=== PATIENT | male | born 1950 | race African-American/Black ===

== ENCOUNTER 2016-05-03 07:11 | Outpatient (CLI) | payer MEDICARE ==
[2016-05-03 08:28] LABS: ALT (SGPT) 23 U/L (0-55); AST (SGOT) 15 U/L (5-34); Albumin 4.1 g/dL (3.4-4.8); Alkaline Phosphatase 128 U/L (40-150); Anion Gap 20 mmol/L (10-20); BUN (Urea Nitrogen) 12 mg/dL (8.4-25.7); Bilirubin, Total 0.7 mg/dL (0.2-1.2); Calc. Creatinine Clearance 0 mL/min (70-130); Calcium 9.4 mg/dL (7.8-10.44); Carbon Dioxide 20 mmol/L (23-31); Cardiac Risk 4.7 (Less than 4.5); Chloride 98 mmol/L (98-107); Cholesterol 238 mg/dL (< 200 Desired); Estimated GFR-MDRD 75; Globulin 2.7 g/dL (2.4-3.5); Glucose 407 mg/dL (80-115); HDL Cholesterol 51 mg/dL (>60 Neg Risk); Hemoglobin A1c 15.2 % (4.0-6.0); LDL Cholesterol, Calculated 144 mg/dL; Potassium 4.3 mmol/L (3.5-5.1); Protein, Total 6.8 g/dL (5.8-8.1); Sodium 134 mmol/L (136-145); Triglycerides 215 mg/dL (Less than 150)
[2016-05-03 08:50] LABS: #Basophils 0.2 thou/uL (0.0-0.2); #Eosinphils 0.1 thou/uL (0.0-0.7); #Lymphocytes 3.7 thou/uL (1.20-3.40); #Monocytes 0.6 thou/uL (0.11-0.59); #Neutrophils 3.3 thou/uL (1.40-6.50); %Basophils 2.2 % (0.0-1.0); %Eosinophils 1.6 % (0.0-10.0); %Lymphocytes 47.1 % (21.0-51.0); %Neutrophils 42.1 % (42.0-75.0); Hemoglobin 13.5 g/dL (14.0-18.0); Mean Corpuscular HGB CONC 33.2 g/dL (32.0-36.0); Mean Corpuscular Hemoglobin 27.4 pg (27.0-31.0); Mean Corpuscular Volume 82.6 fl (80.0-94.0); Mean Platelet Volume 8.7 fL (7.4-10.4); Platelet Count 219 thou/uL (130-400); RBC Distribution Width 13.4 % (11.5-14.5); Red Blood Cell (RBC) Count 4.92 mill/uL (4.70-6.10); White Blood Cell (WBC) Count 7.8 thou/uL (4.8-10.8)
[2016-05-03 17:35] LABS: Microalbumin Urine 11.6 mg/dL (0.5-50.0)
[2016-05-03 18:00] LABS: Creatinine, Urine 68.85 mg/dL (63-166); Microalbumin/Creat Ratio 168.5 mg/g (Less than 30)
== END 2016-05-03 07:12 ==
LOC: MADLABBHPM 07:11
PROVIDERS: ATTEND Family Medicine
DX: E78.5 Hyperlipidemia, unspecified (principal); G89.21 Chronic pain due to trauma; E11.40 Type 2 diabetes mellitus with diabetic neuropathy, unspecified; I10 Essential (primary) hypertension
CPT/HCPCS: 36415; 80053; 80061; 82043; 83036; 84443; 85025

== ENCOUNTER 2016-08-07 08:54 | Outpatient (CLI) | payer MEDICARE ==
[2016-08-07 09:41] LABS: Hemoglobin A1c 12.7 % (4.0-6.0)
[2016-08-07 10:09] LABS: Cardiac Risk 3.1 (Less than 4.5)
== END 2016-08-07 08:55 | disposition home or self-care (01) ==
LOC: MADLABBHPM 08:54
PROVIDERS: ATTEND Family Medicine
DX: E78.5 Hyperlipidemia, unspecified (principal); E11.40 Type 2 diabetes mellitus with diabetic neuropathy, unspecified
CPT/HCPCS: 36415; 80061; 83036

== ENCOUNTER 2016-09-13 08:41 | Outpatient (CLI) | payer MEDICARE ==
[2016-09-13 09:30] LABS: #Basophils 0.2 thou/uL (0.0-0.2); #Eosinphils 0.1 thou/uL (0.0-0.7); #Lymphocytes 2.8 thou/uL (1.20-3.40); #Monocytes 0.6 thou/uL (0.11-0.59); #Neutrophils 4.9 thou/uL (1.40-6.50); %Basophils 2.1 % (0.0-1.0); %Eosinophils 0.8 % (0.0-10.0); %Lymphocytes 32.5 % (21.0-51.0); %Neutrophils 57.7 % (42.0-75.0); Mean Corpuscular HGB CONC 32.7 g/dL (32.0-36.0); Mean Corpuscular Hemoglobin 27.5 pg (27.0-31.0); Mean Corpuscular Volume 84.4 fl (80.0-94.0); Mean Platelet Volume 8.6 fL (7.4-10.4); Platelet Count 226 thou/uL (130-400); RBC Distribution Width 14.1 % (11.5-14.5); Red Blood Cell (RBC) Count 4.71 mill/uL (4.70-6.10); White Blood Cell (WBC) Count 8.5 thou/uL (4.8-10.8)
[2016-09-13 09:36] LABS: Hemoglobin A1c 10.7 % (4.0-6.0)
[2016-09-13 09:55] LABS: ALT (SGPT) 27 U/L (8-55); AST (SGOT) 19 U/L (5-34); Albumin 4.2 g/dL (3.4-4.8); Alkaline Phosphatase 111 U/L (40-150); Anion Gap 17 mmol/L (10-20); BUN (Urea Nitrogen) 14 mg/dL (8.4-25.7); Bilirubin, Direct 0.2 mg/dL (0.1-0.3); Bilirubin, Total 0.5 mg/dL (0.2-1.2); Calc. Creatinine Clearance 0 mL/min (70-130); Calcium 9.5 mg/dL (7.8-10.44); Carbon Dioxide 23 mmol/L (23-31); Chloride 105 mmol/L (98-107); Estimated GFR-MDRD Greater than 90; Glucose 100 mg/dL (80-115); Potassium 4.2 mmol/L (3.5-5.1); Protein, Total 7.3 g/dL (5.8-8.1); Sodium 141 mmol/L (136-145)
[2016-09-13 12:09] LABS: Bilirubin Negative (Negative); Blood, Urine Negative (Negative); Clarity Clear (Clear); Glucose, Urine (Dipstick) 250 mg/dL (Negative); Leukocyte Negative (Negative); Nitrite Negative (Negative); Protein, Urine (Dipstick) 100 mg/dL (Neg-Trace); RBC/HPF None Seen HPF (0-3); Specific Gravity, Urine 1.025 (1.005-1.030); Squamous Epithelial 0-3 HPF (0-3); Urobilinogen 0.2 mg/dL (0.2-1.0); WBC/HPF 0-3 HPF (0-3)
[2016-09-13 12:10] LABS: Bacteria/HPF None Seen HPF (None Seen)
== END 2016-09-13 08:42 | disposition home or self-care (01) ==
LOC: MADLAB 08:41
PROVIDERS: ATTEND Urology
DX: C61 Malignant neoplasm of prostate (principal); N28.9 Disorder of kidney and ureter, unspecified; R35.1 Nocturia; E11.9 Type 2 diabetes mellitus without complications
CPT/HCPCS: 36415; 80048; 80076; 81001; 83036; 84153; 85025; 87086

== ENCOUNTER 2016-12-09 11:08 | Outpatient (CLI) | payer MEDICARE ==
[2016-12-09 12:24] LABS: Hemoglobin A1c 9.8 % (4.0-6.0)
[2016-12-09 12:26] LABS: ALT (SGPT) 26 U/L (8-55); AST (SGOT) 17 U/L (5-34); Albumin 4.3 g/dL (3.4-4.8); Alkaline Phosphatase 105 U/L (40-150); Anion Gap 17 mmol/L (10-20); BUN (Urea Nitrogen) 12 mg/dL (8.4-25.7); Bilirubin, Total 0.7 mg/dL (0.2-1.2); Calc. Creatinine Clearance 0 mL/min (70-130); Calcium 9.4 mg/dL (7.8-10.44); Carbon Dioxide 23 mmol/L (23-31); Cardiac Risk 3.6 (Less than 4.5); Chloride 103 mmol/L (98-107); Cholesterol 190 mg/dl (< 200 Desired); Estimated GFR-MDRD 87; Globulin 3.1 g/dL (2.4-3.5); Glucose 324 mg/dL (80-115); HDL Cholesterol 53 mg/dL (>60 Neg Risk); LDL Cholesterol, Calculated 116 mg/dL; Potassium 4.6 mmol/L (3.5-5.1); Protein, Total 7.4 g/dL (5.8-8.1); Sodium 138 mmol/L (136-145); Triglycerides 106 mg/dL (Less than 150)
[2016-12-09 12:27] LABS: #Basophils 0.2 thou/uL (0.0-0.2); #Eosinphils 0.1 thou/uL (0.0-0.7); #Lymphocytes 2.9 thou/uL (1.20-3.40); #Monocytes 0.5 thou/uL (0.11-0.59); #Neutrophils 5.5 thou/uL (1.40-6.50); %Basophils 2.2 % (0.0-1.0); %Eosinophils 1.1 % (0.0-10.0); %Lymphocytes 31.3 % (21.0-51.0); %Monocytes 5.9 % (0.0-10.0); %Neutrophils 59.5 % (42.0-75.0); Hemoglobin 13.4 g/dL (14.0-18.0); Mean Corpuscular HGB CONC 32.3 g/dL (32.0-36.0); Mean Corpuscular Hemoglobin 26.9 pg (27.0-31.0); Mean Corpuscular Volume 83.3 fl (80.0-94.0); Mean Platelet Volume 8.6 fL (7.4-10.4); Platelet Count 222 thou/uL (130-400); RBC Distribution Width 13.8 % (11.5-14.5); Red Blood Cell (RBC) Count 4.96 mill/uL (4.70-6.10); White Blood Cell (WBC) Count 9.2 thou/uL (4.8-10.8)
[2016-12-09 19:47] LABS: Syphilis Antibody Index 7.35 S/CO (<1.00 Non-Reactive)
[2016-12-09 19:54] LABS: HBCM Index 0.11 S/CO (0-0.79); HBSAg Index 0.28 S/CO (0-0.99); HIV (1/2) Antibody/Antigen Non-Reactive (NonReactive); HIV 1/2 INDEX 0.19 S/CO (<1.00); Hep A IgM AB Non-Reactive (NonReactive); Hep A IgM S/CO 0.19 S/CO (0-0.79); Hep B Surf Ag Non-Reactive S/CO (NonReactive); Hep C IgG Ab Non-Reactive (NonReactive); Hep C Index 0.07 S/CO (0-0.79); Hepatitis B Core IGM Abs Non-Reactive (NonReactive)
[2016-12-09 20:54] LABS: Syphilis Antibody INDETERMINATE (NonReactive)
[2016-12-10 20:38] LABS: Chlamydia by PCR Not Detected (NotDetected); GC by PCR Not Detected (NotDetected)
[2016-12-12 23:10] LABS: HSV-1 IgG Type Specific <0.91 index (0.00-0.90); HSV-2 IgG Type Specific Less than 0.91 index (0.00-0.90)
== END 2016-12-09 11:09 | disposition home or self-care (01) ==
LOC: MADLABBHPM 11:08
PROVIDERS: ATTEND Family Medicine
DX: Z20.2 Contact with and (suspected) exposure to infections with a predominantly sexual mode of transmission (principal); E11.40 Type 2 diabetes mellitus with diabetic neuropathy, unspecified; R25.1 Tremor, unspecified
CPT/HCPCS: 36415; 80053; 80061; 80074; 83036; 85025; 86593; 86694; 86695; 86696; 86780; 87389; 87491; 87591

== ENCOUNTER 2017-01-17 17:55 | Emergency (ER) | payer MEDICARE, OTHER ==
[2017-01-17] MEDS ORDERED: Insulin Regular 300 UNITS/3 ML VIAL ONE (18:30)
[2017-01-17 18:54] LABS: #Basophils 0.1 thou/uL (0.0-0.2); #Eosinphils 0.1 thou/uL (0.0-0.7); #Lymphocytes 3.1 thou/uL (1.20-3.40); #Monocytes 0.7 thou/uL (0.11-0.59); #Neutrophils 4.3 thou/uL (1.40-6.50); %Basophils 1.2 % (0.0-1.0); %Eosinophils 0.9 % (0.0-10.0); %Monocytes 8.2 % (0.0-10.0); %Neutrophils 51.8 % (42.0-75.0); Hemoglobin 11.9 g/dL (14.0-18.0); Mean Corpuscular HGB CONC 33.7 g/dL (32.0-36.0); Mean Platelet Volume 7.2 fL (7.4-10.4); Platelet Count 214 thou/uL (130-400); RBC Distribution Width 13.7 % (11.5-14.5); Red Blood Cell (RBC) Count 4.25 mill/uL (4.70-6.10); White Blood Cell (WBC) Count 8.2 thou/uL (4.8-10.8)
[2017-01-17] MEDS ORDERED: traMADol HCl 50 MG TAB ONE (19:11)
[2017-01-17] MEDS ORDERED: Ketorolac Tromethamine 30 MG/ML VIAL ONE (19:11)
[2017-01-17 19:12] LABS: ALT (SGPT) 16 U/L (8-55); AST (SGOT) 9 U/L (5-34); Albumin 4.1 g/dL (3.4-4.8); Alkaline Phosphatase 96 U/L (40-150); Anion Gap 19 mmol/L (10-20); BUN (Urea Nitrogen) 18 mg/dL (8.4-25.7); Bilirubin, Total 0.6 mg/dL (0.2-1.2); Calc. Creatinine Clearance 0 mL/min (70-130); Calcium 9.4 mg/dL (7.8-10.44); Carbon Dioxide 19 mmol/L (23-31); Chloride 103 mmol/L (98-107); Estimated GFR-MDRD 57; Globulin 2.6 g/dL (2.4-3.5); Glucose 391 mg/dL (80-115); Potassium 4.9 mmol/L (3.5-5.1); Protein, Total 6.7 g/dL (5.8-8.1); Sodium 136 mmol/L (136-145)
[2017-01-17 19:14] LABS: CKMB 3.5 ng/mL (0-6.6); Troponin I 0.011 ng/mL (< 0.028)
[2017-01-17 19:22] LABS: Bilirubin Negative (Negative); Blood, Urine Negative (Negative); Clarity Clear (Clear); Glucose, Urine (Dipstick) >=1000 mg/dL (Negative); Leukocyte Negative (Negative); Nitrite Negative (Negative); Protein, Urine (Dipstick) 30 mg/dL (Neg-Trace); Urobilinogen 0.2 mg/dL (0.2-1.0)
[2017-01-17 19:24] LABS: Bacteria/HPF Rare-Few HPF (None Seen); RBC/HPF 0-3 HPF (0-3); Squamous Epithelial 0-3 HPF (0-3); WBC/HPF None Seen HPF (0-3)
== END 2017-01-17 19:52 | disposition home or self-care (01) ==
LOC: MADERS 17:55
DX: E11.65 Type 2 diabetes mellitus with hyperglycemia (principal); M54.5 Low back pain; G89.29 Other chronic pain; E78.5 Hyperlipidemia, unspecified; I10 Essential (primary) hypertension; Z79.899 Other long term (current) drug therapy; Z79.4 Long term (current) use of insulin
CPT/HCPCS: 36416; 80053; 81003; 81015; 82553; 84484; 85025; 93005; 96372; 36415-59; J1815; J1885

== ENCOUNTER 2017-05-10 04:59 | Emergency (ER) | payer MEDICARE, OTHER ==
[2017-05-10] MEDS ORDERED: HYDROcodone/Acetaminophen 10/325 mg Tablet ONE (05:32)
[2017-05-10] MEDS ORDERED: Naproxen 500 MG TAB ONE (05:33)
[2017-05-10] MEDS ORDERED: MORPHINE 10 MG/ML SYRINGE ONE (07:04)
[2017-05-10] MEDS ORDERED: Ondansetron HCl/PF 4 MG/2 ML Vial ONE ×2 (07:04→07:11)
[2017-05-10] MEDS ORDERED: Ondansetron ODT 4 MG TAB ONE (07:13)
--- NOTE | 2017-05-10 08:52 | RAD ---
LEFT KNEE 4 VIEWS: Date: 05/10/17 HISTORY: Fall, left knee pain. FINDINGS/IMPRESSION: No acute fracture or dislocation is identified. POS: CICI
--- NOTE | 2017-05-10 08:53 | RAD ---
RIGHT KNEE 4 VIEWS: Date: 05/10/17 HISTORY: Fall, right knee pain. FINDINGS/IMPRESSION: No fracture or dislocation is identified. POS: CICI
--- NOTE | 2017-05-10 08:56 | RAD ---
LEFT ANKLE 3 VIEWS: Date: 05/10/17 HISTORY: Fall, left ankle pain. FINDINGS/IMPRESSION: There is a mildly displaced oblique fracture involving the distal fibula. No significant disruption o f the ankle mortise is seen. Soft tissue swelling is present. POS: CICI
== END 2017-05-10 08:30 | disposition home or self-care (01) ==
LOC: MADERS 04:59
DX: S82.832A Other fracture of upper and lower end of left fibula, initial encounter for closed fracture (principal); E11.9 Type 2 diabetes mellitus without complications; E78.5 Hyperlipidemia, unspecified; I10 Essential (primary) hypertension; Z79.899 Other long term (current) drug therapy; Z79.84 Long term (current) use of oral hypoglycemic drugs; Z79.82 Long term (current) use of aspirin; X50.1XXA Overexertion from prolonged static or awkward postures, initial encounter
CPT/HCPCS: 96372; J2270; J2405; Q0162

== ENCOUNTER → 2017-10-02 17:25 | Emergency (ER) | payer MEDICARE ==
[2017-10-02 18:30] LABS: #Basophils 0.1 thou/uL (0.0-0.2); #Eosinphils 0.1 thou/uL (0.0-0.7); #Lymphocytes 2.3 thou/uL (1.20-3.40); #Monocytes 0.6 thou/uL (0.11-0.59); #Neutrophils 4.7 thou/uL (1.40-6.50); %Basophils 1.3 % (0.0-1.0); %Eosinophils 1.2 % (0.0-10.0); %Lymphocytes 29.6 % (21.0-51.0); %Monocytes 7.9 % (0.0-10.0); %Neutrophils 59.9 % (42.0-75.0); Hemoglobin 10.6 g/dL (14.0-18.0); Mean Corpuscular HGB CONC 33.7 g/dL (32.0-36.0); Mean Corpuscular Hemoglobin 27.3 pg (27.0-31.0); Mean Corpuscular Volume 80.9 fL (78.0-98.0); Mean Platelet Volume 7.5 fL (7.4-10.4); Platelet Count 184 thou/uL (130-400); RBC Distribution Width 13.7 % (11.5-14.5); Red Blood Cell (RBC) Count 3.89 mill/uL (4.70-6.10); White Blood Cell (WBC) Count 7.8 thou/uL (4.8-10.8)
[2017-10-02 18:39] LABS: Anion Gap 20 mmol/L (10-20); BUN (Urea Nitrogen) 18 mg/dL (8.4-25.7); Calc. Creatinine Clearance 0 mL/min (70-130); Calcium 9.2 mg/dL (7.8-10.44); Carbon Dioxide 20 mmol/L (23-31); Chloride 107 mmol/L (98-107); Estimated GFR-MDRD Greater than 90; Glucose 90 mg/dL (80-115); Potassium 3.9 mmol/L (3.5-5.1); Sodium 143 mmol/L (136-145)
== END | disposition home or self-care (01) ==
LOC: MADERS 17:25
DX: E11.649 Type 2 diabetes mellitus with hypoglycemia without coma (principal); I10 Essential (primary) hypertension; E78.5 Hyperlipidemia, unspecified; T38.3X5A Adverse effect of insulin and oral hypoglycemic [antidiabetic] drugs, initial encounter
CPT/HCPCS: 36416; 80048; 85025; 93005; 36415-59

== ENCOUNTER 2017-12-23 16:50 | Emergency (ER) | payer MEDICARE, OTHER ==
[~2017-12-23 16:50] MED LIST: Sodium Chloride 0.9% 1,000 ML BAG ONE
[2017-12-23 17:43] LABS: #Basophils 0.2 thou/uL (0.0-0.2); #Eosinphils 0.1 thou/uL (0.0-0.7); #Monocytes 0.5 thou/uL (0.11-0.59); #Neutrophils 4.5 thou/uL (1.40-6.50); %Lymphocytes 36.7 % (21.0-51.0); %Monocytes 6.6 % (0.0-10.0); %Neutrophils 53.9 % (42.0-75.0); Hemoglobin 12.6 g/dL (14.0-18.0); Mean Corpuscular HGB CONC 33.1 g/dL (32.0-36.0); Mean Corpuscular Volume 81.5 fL (78.0-98.0); Mean Platelet Volume 7.8 fL (7.4-10.4); Platelet Count 244 thou/uL (130-400); RBC Distribution Width 13.3 % (11.5-14.5); Red Blood Cell (RBC) Count 4.68 mill/uL (4.70-6.10); White Blood Cell (WBC) Count 8.3 thou/uL (4.8-10.8)
[2017-12-23 18:03] LABS: ALT (SGPT) 50 U/L (8-55); AST (SGOT) 23 U/L (5-34); Albumin 4.2 g/dL (3.4-4.8); Alkaline Phosphatase 157 U/L (40-150); Anion Gap 16 mmol/L (10-20); BUN (Urea Nitrogen) 15 mg/dL (8.4-25.7); Bilirubin, Total 0.4 mg/dL (0.2-1.2); Calc. Creatinine Clearance 0 mL/min (70-130); Calcium 9.4 mg/dL (7.8-10.44); Carbon Dioxide 22 mmol/L (23-31); Chloride 105 mmol/L (98-107); Estimated GFR-MDRD 84; Glucose 295 mg/dL (80-115); Magnesium 2.2 mg/dL (1.6-2.6); Phosphorus 3.2 mg/dL (2.3-4.7); Potassium 4.1 mmol/L (3.5-5.1); Protein, Total 7.2 g/dL (5.8-8.1); Sodium 139 mmol/L (136-145)
[2017-12-23] MEDS ORDERED: Potassium Chloride 20 MEQ TAB ONE (19:14)
[2017-12-23] MEDS ORDERED: Insulin Regular 300 UNITS/3 ML VIAL ONE (19:14)
[2017-12-23 19:28] LABS: CO2 Tension (PvCO2) 31.5 mmHg (41.0-51.0); pH (Venous) 7.494 (7.35-7.45)
[2017-12-23 19:29] LABS: Base Excess-Venous 1.7 mmol/L (0 (+/- 2.5)); Bicarbonate (HCO3v) 24.3 mmol/L (1.0-85.0); Hemoglobin - Calc 14.6 g/dL (12.0-18.0); O2 Tension (PvO2) 213.1 mmHg (35.0-45.0); Potassium 4.1 mmol/L (3.4-4.7); vO2 Saturation-calc 99.8 % (94-98)
[2017-12-23 19:30] LABS: Calcium, Ionized 1.14 mmol/L (1.12-1.32); T. Carbon Dioxide 25.3 mmol/L (1.0-85.0)
== END 2017-12-23 20:33 | disposition home or self-care (01) ==
LOC: MADERS 16:50
DX: E11.65 Type 2 diabetes mellitus with hyperglycemia (principal); I10 Essential (primary) hypertension; E78.5 Hyperlipidemia, unspecified; Z79.899 Other long term (current) drug therapy; Z79.891 Long term (current) use of opiate analgesic; Z79.4 Long term (current) use of insulin
CPT/HCPCS: 36416; 80053; 82330; 82803; 83735; 83880; 84100; 84484; 85025; 96361; 96374; 36415-59; J1815; J7050

== ENCOUNTER 2018-08-29 13:07 | Emergency (ER) | payer MEDICARE, OTHER | END 2018-08-29 14:09 | disposition home or self-care (01) | LOC: MADERS 13:07 | DX: S91.111A Laceration without foreign body of right great toe without damage to nail, initial encounter (principal); E11.9 Type 2 diabetes mellitus without complications; E78.5 Hyperlipidemia, unspecified; I10 Essential (primary) hypertension; Z79.899 Other long term (current) drug therapy; Z79.82 Long term (current) use of aspirin; Z79.84 Long term (current) use of oral hypoglycemic drugs; X58.XXXA Exposure to other specified factors, initial encounter | CPT/HCPCS: 99283 ==

== ENCOUNTER 2018-09-01 16:48 | Emergency (ER) | payer MEDICARE, OTHER ==
[2018-09-01] MEDS ORDERED: cefTRIAXone\\ROCEPHIN 1 GM VIAL ONE (17:30)
[2018-09-01] MEDS ORDERED: Lidocaine 1% 20 ML MDV ONE (17:30)
[2018-09-01 17:34] LABS: #Basophils 0.1 thou/uL (0.0-0.2); #Lymphocytes 1.6 thou/uL (1.20-3.40); #Monocytes 0.9 thou/uL (0.11-0.59); #Neutrophils 8.5 thou/uL (1.40-6.50); %Eosinophils 0.2 % (0.0-10.0); %Monocytes 8.3 % (0.0-10.0); %Neutrophils 76.5 % (42.0-75.0); Hemoglobin 10.3 g/dL (14.0-18.0); Mean Corpuscular HGB CONC 32.9 g/dL (32.0-36.0); Mean Corpuscular Hemoglobin 26.9 pg (27.0-31.0); Mean Corpuscular Volume 81.9 fL (78.0-98.0); Platelet Count 194 thou/uL (130-400); RBC Distribution Width 13.6 % (11.5-14.5); Red Blood Cell (RBC) Count 3.84 mill/uL (4.70-6.10); White Blood Cell (WBC) Count 11.2 thou/uL (4.8-10.8)
[2018-09-01 17:48] LABS: ALT (SGPT) 16 U/L (8-55); AST (SGOT) 15 U/L (5-34); Albumin 3.5 g/dL (3.4-4.8); Alkaline Phosphatase 103 U/L (40-150); Anion Gap 16 mmol/L (10-20); BUN (Urea Nitrogen) 14 mg/dL (8.4-25.7); Bilirubin, Total 0.6 mg/dL (0.2-1.2); Calc. Creatinine Clearance 0 mL/min (70-130); Calcium 8.8 mg/dL (7.8-10.44); Carbon Dioxide 19 mmol/L (23-31); Chloride 102 mmol/L (98-107); Estimated GFR-MDRD 74; Globulin 2.8 g/dL (2.4-3.5); Glucose 411 mg/dL (80-115); Glucose Accucheck Confirmation 411 mg/dl (80-115); Potassium 4.4 mmol/L (3.5-5.1); Protein, Total 6.3 g/dL (5.8-8.1); Sodium 133 mmol/L (136-145)
--- NOTE | 2018-09-01 17:54 | RAD ---
Exam: XR Foot Rt 3 View STANDARD HISTORY: Right foot injury. COMPARISON: None FINDINGS: Vascular calcifications are seen at the level of the ankle and involving the foot. There is mild subcutaneous soft tissue swelling seen at the dorsal aspect of the forefoot. Plantar calcaneal enthesophyte is seen. Minimal degenerative changes are seen involving the midfoot. No acute fracture, dislocation, or other acute osseous abnormality is identified. IMPRESSION: No acute osseous abnormality is identified. Mild subcutaneous soft tissue swelling at the dorsal aspect of the forefoot.
[2018-09-01] MEDS ORDERED: HYDROcodone/Acetaminophen 5/325 mg Tablet ONE ×2 (18:12→18:47)
== END 2018-09-01 19:15 | disposition home or self-care (01) ==
LOC: MADERS 16:48
DX: L03.031 Cellulitis of right toe (principal); E11.9 Type 2 diabetes mellitus without complications; E78.5 Hyperlipidemia, unspecified; I10 Essential (primary) hypertension; Z79.899 Other long term (current) drug therapy; Z79.4 Long term (current) use of insulin; Z79.82 Long term (current) use of aspirin
CPT/HCPCS: 36415; 36416; 80053; 82947; 85025; 85652; 96372; J0696; J2001

== ENCOUNTER 2018-11-11 15:24 | Emergency (ER) | payer MEDICARE, OTHER ==
[2018-11-11] MEDS ORDERED: Insulin Regular 300 UNITS/3 ML VIAL ONE ×2 (15:56→17:22)
[2018-11-11] MEDS ORDERED: Cyclobenzaprine 10 MG TAB ONE (16:01)
[2018-11-11] MEDS ORDERED: Ibuprofen 800 MG TAB ONE (16:01)
[2018-11-11 16:06] LABS: Bilirubin Negative (Negative); Blood, Urine Trace (Negative); Glucose, Urine (Dipstick) >=1000 mg/dL (Negative); Leukocyte Negative (Negative); Nitrite Negative (Negative); Protein, Urine (Dipstick) 100 mg/dL (Neg-Trace); Urobilinogen 0.2 mg/dL (Less than 2)
[2018-11-11 16:10] LABS: Clarity Hazy (Clear)
[2018-11-11 16:12] LABS: Bacteria/HPF Rare-Few HPF (None Seen); Squamous Epithelial 0-3 HPF (0-3); WBC/HPF 0-3 HPF (0-3)
[2018-11-11 18:00] LABS: #Basophils 0.1 thou/uL (0.0-0.2); #Eosinphils 0.1 thou/uL (0.0-0.7); #Lymphocytes 2.6 thou/uL (1.20-3.40); #Monocytes 0.2 thou/uL (0.11-0.59); #Neutrophils 4.1 thou/uL (1.40-6.50); %Basophils 0.7 % (0.0-1.0); %Lymphocytes 37.1 % (21.0-51.0); %Monocytes 2.5 % (0.0-10.0); %Neutrophils 58.7 % (42.0-75.0); Anisocytosis SLIGHT = 6-15 cells (100X) (0-5/hpf); Hemoglobin 11.9 g/dL (14.0-18.0); Hypochromia SLIGHT = 6-15 cells (100X) (0-5/hpf); MDiff Complete? YES; Mean Corpuscular HGB CONC 32.2 g/dL (32.0-36.0); Mean Corpuscular Hemoglobin 25.5 pg (27.0-31.0); Mean Corpuscular Volume 79.2 fL (78.0-98.0); Platelet Count 175 thou/uL (130-400); Platelet Morphology Comment Appears Adequate; RBC Distribution Width 16.1 % (11.5-14.5); Red Blood Cell (RBC) Count 4.68 mill/uL (4.70-6.10); Target Cells SLIGHT = 2-5 cells (100X) (0-1/hpf)
[2018-11-11 18:04] LABS: Anion Gap 13 mmol/L (10-20); BUN (Urea Nitrogen) 18 mg/dL (8.4-25.7); Calc. Creatinine Clearance 0 mL/min (70-130); Calcium 8.8 mg/dL (7.8-10.44); Carbon Dioxide 24 mmol/L (23-31); Chloride 102 mmol/L (98-107); Estimated GFR-MDRD 82; Glucose 525 mg/dL (80-115); Potassium 3.4 mmol/L (3.5-5.1); Sodium 136 mmol/L (136-145)
== END 2018-11-11 19:58 | disposition home or self-care (01) ==
LOC: MADERS 15:24
DX: S03.2XXA Dislocation of tooth, initial encounter (principal); S29.011A Strain of muscle and tendon of front wall of thorax, initial encounter; S39.012A Strain of muscle, fascia and tendon of lower back, initial encounter; E11.65 Type 2 diabetes mellitus with hyperglycemia; E78.5 Hyperlipidemia, unspecified; I10 Essential (primary) hypertension; V69.9XXA Occupant (driver) (passenger) of heavy transport vehicle injured in unspecified traffic accident, initial encounter
CPT/HCPCS: 36416; 80048; 81003; 81015; 85025; 96361; 96374; 36415-59; J1815; J7050

== ENCOUNTER 2019-01-13 17:39 | Emergency (ER) | payer MEDICARE ==
[2019-01-13] MEDS ORDERED: Ondansetron PF 4 MG/2 ML Vial ONE (18:11)
[2019-01-13] MEDS ORDERED: Insulin Regular 300 UNITS/3 ML VIAL ONE (18:12)
[2019-01-13 18:45] LABS: #Basophils 0.2 thou/uL (0.0-0.2); #Eosinphils 0.1 thou/uL (0.0-0.7); #Lymphocytes 1.9 thou/uL (1.20-3.40); #Monocytes 0.7 thou/uL (0.11-0.59); #Neutrophils 6.2 thou/uL (1.40-6.50); %Basophils 1.8 % (0.0-1.0); %Eosinophils 0.6 % (0.0-10.0); %Lymphocytes 20.9 % (21.0-51.0); %Monocytes 7.8 % (0.0-10.0); %Neutrophils 68.9 % (42.0-75.0); Hemoglobin 14.1 g/dL (14.0-18.0); Mean Corpuscular HGB CONC 32.2 g/dL (32.0-36.0); Mean Corpuscular Hemoglobin 26.4 pg (27.0-31.0); Mean Corpuscular Volume 81.9 fL (78.0-98.0); Mean Platelet Volume 8.7 fL (7.4-10.4); Platelet Count 198 thou/uL (130-400); RBC Distribution Width 15.2 % (11.5-14.5); Red Blood Cell (RBC) Count 5.35 mill/uL (4.70-6.10); White Blood Cell (WBC) Count 8.9 thou/uL (4.8-10.8)
[2019-01-13 18:47] LABS: ALT (SGPT) 23 U/L (8-55); AST (SGOT) 12 U/L (5-34); Alkaline Phosphatase 136 U/L (40-110); Anion Gap 15 mmol/L (10-20); BUN (Urea Nitrogen) 9 mg/dL (8.4-25.7); Bilirubin, Total 0.5 mg/dL (0.2-1.2); Calc. Creatinine Clearance 0 mL/min (70-130); Calcium 9.8 mg/dL (7.8-10.44); Carbon Dioxide 26 mmol/L (23-31); Chloride 98 mmol/L (98-107); Estimated GFR-MDRD 77; Globulin 2.8 g/dL (2.4-3.5); Potassium 4.2 mmol/L (3.5-5.1); Protein, Total 6.8 g/dL (5.8-8.1); Sodium 135 mmol/L (136-145)
[2019-01-13 19:06] LABS: Glucose 590 mg/dL (80-115)
[2019-01-13 19:07] LABS: Anisocytosis SLIGHT = 6-15 cells (100X) (0-5/hpf); Platelet Morphology Comment Appears Adequate
--- NOTE | 2019-01-13 19:08 | RAD ---
CHEST ONE VIEW: 01/13/19 HISTORY: Cough. COMPARISON: 03/23/12. FINDINGS: The cardiac silhouette is magnified by projection. Pulmonary vasculature is unremarkable. Mediastinum is midline. No confluent air space consolidation or evidence of pneumothorax. Degenerative changes o f the shoulders. IMPRESSION: No active cardiopulmonary abnormalities are demonstrated. POS: BST
[2019-01-13] MEDS ORDERED: Aspirin Chewable 81 MG TAB ONE (19:54)
[2019-01-13] MEDS ORDERED: Fentanyl 100 MCG/2 ML VIAL ONE (19:54)
[2019-01-13 20:17] LABS: Bilirubin Negative (Negative); Blood, Urine Negative (Negative); Clarity Clear (Clear); Glucose, Urine (Dipstick) 500 mg/dL (Negative); Leukocyte Negative (Negative); Nitrite Negative (Negative); Protein, Urine (Dipstick) 100 mg/dL (Neg-Trace); Urobilinogen 0.2 mg/dL (Less than 2)
[2019-01-13 20:22] LABS: Bacteria/HPF Rare-Few HPF (None Seen); RBC/HPF 0-3 HPF (0-3); Squamous Epithelial 0-3 HPF (0-3); WBC/HPF 0-3 HPF (0-3)
== END 2019-01-13 21:35 | disposition short-term general hospital (02) ==
LOC: MADERS 17:39
DX: J06.9 Acute upper respiratory infection, unspecified (principal); E11.65 Type 2 diabetes mellitus with hyperglycemia; R79.89 Other specified abnormal findings of blood chemistry; E78.5 Hyperlipidemia, unspecified; I10 Essential (primary) hypertension; Z79.891 Long term (current) use of opiate analgesic; Z79.82 Long term (current) use of aspirin; Z79.51 Long term (current) use of inhaled steroids; Z79.4 Long term (current) use of insulin; Z79.899 Other long term (current) drug therapy
CPT/HCPCS: 36416; 71045; 80053; 81003; 81015; 82553; 83605; 83880; 84484; 85025; 87804; 93005; 96361; 96374; 96375; 96376; J1815; J2405; J3010; J7050

== ENCOUNTER 2019-01-15 23:40 | Emergency (ER) | payer MEDICARE ==
[2019-01-16] MEDS ORDERED: Sodium Chloride 0.9% 1,000 ML ONE (00:40)
[2019-01-16 01:01] LABS: Hemoglobin 12.8 g/dL (14.0-18.0); Mean Corpuscular HGB CONC 31.8 g/dL (32.0-36.0); Mean Corpuscular Hemoglobin 26.2 pg (27.0-31.0); Mean Corpuscular Volume 82.2 fL (78.0-98.0); Mean Platelet Volume 8.4 fL (7.4-10.4); Platelet Count 199 thou/uL (130-400); RBC Distribution Width 15.2 % (11.5-14.5); Red Blood Cell (RBC) Count 4.87 mill/uL (4.70-6.10); White Blood Cell (WBC) Count 7.5 thou/uL (4.8-10.8)
[2019-01-16 01:26] LABS: #Basophils 0.1 thou/uL (0.0-0.2); #Eosinphils 0.1 thou/uL (0.0-0.7); #Monocytes 0.9 thou/uL (0.11-0.59); #Neutrophils 4.2 thou/uL (1.40-6.50); %Basophils 1.3 % (0.0-1.0); %Eosinophils 0.7 % (0.0-10.0); %Lymphocytes 31.6 % (21.0-51.0); %Monocytes 11.3 % (0.0-10.0); %Neutrophils 55.2 % (42.0-75.0); Platelet Morphology Comment Appears Adequate; RBC Morphology Normal
[2019-01-16 01:30] LABS: MDiff Complete? YES
[2019-01-16 01:31] LABS: #Lymphocytes 2.4 thou/uL (1.20-3.40)
[2019-01-16 01:48] LABS: ALT (SGPT) 26 U/L (8-55); AST (SGOT) 18 U/L (5-34); Albumin 3.6 g/dL (3.4-4.8); Alkaline Phosphatase 131 U/L (40-110); Anion Gap 16 mmol/L (10-20); BUN (Urea Nitrogen) 9 mg/dL (8.4-25.7); Bilirubin, Total 0.6 mg/dL (0.2-1.2); Calc. Creatinine Clearance 0 mL/min (70-130); Calcium 9.3 mg/dL (7.8-10.44); Carbon Dioxide 22 mmol/L (23-31); Chloride 103 mmol/L (98-107); Estimated GFR-MDRD 75; Globulin 2.7 g/dL (2.4-3.5); Glucose 438 mg/dL (80-115); Potassium 3.6 mmol/L (3.5-5.1); Protein, Total 6.3 g/dL (5.8-8.1); Sodium 137 mmol/L (136-145)
[2019-01-16 01:51] LABS: CKMB 2.5 ng/mL (0-6.6)
[2019-01-16] MEDS ORDERED: Insulin Regular 300 UNITS/3 ML VIAL ONE (02:14)
[2019-01-16 05:02] LABS: Troponin I 0.097 ng/mL (< 0.028)
--- NOTE | 2019-01-16 07:20 | RAD ---
XR Chest 1 View Portable History: Cough Comparison: Radiograph January 13, 2019 Findings: Lungs are clear. No pneumothorax or effusion. Cardiac silhouette and mediastinal contours a re within normal limits. No acute osseous abnormality. Impression: No acute intrathoracic abnormality.
== END 2019-01-16 05:25 | disposition left against medical advice (07) ==
LOC: MADERS 23:40
DX: R06.02 Shortness of breath (principal); R79.89 Other specified abnormal findings of blood chemistry; E11.9 Type 2 diabetes mellitus without complications; E78.5 Hyperlipidemia, unspecified; E78.00 Pure hypercholesterolemia, unspecified; F41.9 Anxiety disorder, unspecified; Z79.899 Other long term (current) drug therapy; Z79.82 Long term (current) use of aspirin; Z85.46 Personal history of malignant neoplasm of prostate; Z79.84 Long term (current) use of oral hypoglycemic drugs
CPT/HCPCS: 36416; 71045; 80053; 82553; 83605; 83880; 84484; 85025; 93005; 96361; 96374; J1815; J7050; J7620

== ENCOUNTER 2019-02-16 16:19 | Inpatient (IN) | payer MEDICARE ==
[2019-02-16] MEDS ORDERED: FLU VACC TS2019-20(65YR UP)/PF 180 MCG/0.5 ML SYRINGE IM ONE (21:00)
[2019-02-16] MEDS ORDERED: Prevnar 13-Val Conj/PF 0.5 ML SYRINGE IM ONE (21:00)
[2019-02-16] MEDS: Acetaminophen 325 MG TAB PO PRN (22:32)
[2019-02-16] MEDS ORDERED: Ondansetron ODT 4 MG TAB PO PRN (23:01)
[2019-02-16] MEDS ORDERED: Melatonin 3 MG TAB PO PRN (23:06)
[2019-02-16] MEDS ORDERED: Methocarbamol 500 MG TAB PO PRN (23:06)
[2019-02-16] MEDS ORDERED: Insulin Regular 300 UNITS/3 ML VIAL SC PRN (23:09)
[2019-02-16] MEDS ORDERED: Dextrose 50% Abboject 50 ML SYRINGE SLOW IVP PRN (23:09)
[2019-02-16] MEDS ORDERED: Dextrose 5% in Water 1,000 ML IV PRN (23:09)
[2019-02-17] MEDS ORDERED: Amantadine HCl 100 mg Capsule ONE (07:20)
[2019-02-17] MEDS ORDERED: Famotidine 20 MG TAB ONE (07:20)
[2019-02-17] MEDS ORDERED: Amlodipine 5 MG TAB ONE (07:21)
[2019-02-17] MEDS ORDERED: Aspirin 81 mg Enteric Coated Tablet ONE (07:21)
[2019-02-17] MEDS ORDERED: Carvedilol 3.125 MG TAB ONE (07:22)
[2019-02-17] MEDS ORDERED: Prazosin HCl 1 MG CAP ONE (07:23)
[2019-02-17] MEDS ORDERED: metFORMIN XR 500 MG TAB ONE (07:25)
[2019-02-17] MEDS ORDERED: traZODone HCl 50 MG TAB ONE (07:25)
[2019-02-17] MEDS ORDERED: Lantus 1000 UNITS/10 ML VIAL ONE (07:26)
[2019-02-17] MEDS ORDERED: traZODone HCl 50 MG TAB PO SCH (09:00)
[2019-02-17] MEDS: Aspirin Chewable 81 MG TAB PO SCH (09:00)
[2019-02-17] MEDS: metFORMIN XR 500 MG TAB PO SCH ×2 (09:00→16:54)
[2019-02-17] MEDS: Amantadine HCl 100 mg Capsule PO SCH ×3 (09:00→20:37)
[2019-02-17] MEDS: Amlodipine 5 MG TAB PO SCH (09:00)
[2019-02-17] MEDS: Rasagiline Mesylate [Azilect] 1 MG PO SCH (09:00)
[2019-02-17] MEDS: Prazosin HCl 1 MG CAP PO SCH (09:00)
[2019-02-17] MEDS: Carvedilol 3.125 MG TAB PO SCH ×2 (09:00→16:54)
[2019-02-17] MEDS ORDERED: Insulin Glargine 15 UNITS in Pre-Filled Syringe 1 EACH SC SCH (09:00)
[2019-02-17] MEDS: Lantus 1000 UNITS/10 ML VIAL SC SCH (09:00)
[2019-02-17] MEDS: SULINDAC 200 MG PO SCH ×2 (09:00→20:54)
[2019-02-17] MEDS: Famotidine 20 MG TAB PO SCH ×2 (09:00→20:46)
[2019-02-17] MEDS: Insulin Regular 300 UNITS/3 ML VIAL SC PRN (15:02)
[2019-02-17] MEDS: Acetaminophen 325 MG TAB PO PRN (19:15)
[2019-02-17] MEDS: traZODone HCl 50 MG TAB PO SCH (20:37)
--- NOTE | 2019-02-18 00:11 | HP ---
PRIMARY CARE PHYSICIAN: Lionel Singh MD REASON FOR ADMISSION: For skilled rehabilitation at [facility], status post subdural and subarachnoid hematoma, status post traumatic respiratory failure and non-ST elevation [place]. BRIEF HISTORY OF PRESENT ILLNESS: Mr. Jewel SAHU is a very pleasant, unfortunate male, who is well known to me. The patient does have a medical history of hypertension; diabetes, type 2; uncontrolled essential tremor; Parkinson disease; PTSD; and chronic lower back pain. Unfortunately, the patient's couple of months ago and since then, the patient's medical condition has progressively deteriorated. The patient unfortunately got himself involved with a provider, who introduced him to paraphernalia, K2, and marijuana. The patient due to recent loss of his and grief, has been using a lot of K2 to numb these grief process. Unfortunately, the patient on February 11, was found by a family member unresponsive with drug paraphernalia around and broken glass around in his house. 911 was called, and EMS found patient to be in a [place] Coma Scale of 7. The patient was agitated, combative, requiring sedation and elective intubation to protect his airway. The patient was initially admitted to the ICU due to this. CT of the brain was done and showed traumatic bilateral small subdural hematoma. The patient also had multiple lacerations and superficial lower extremity abrasions. X-ray of the humerus, CT cervical spine, and x-ray of tibia-fibula, all showed no acute abnormalities or fractures. The patient did have episodes of shortness of breath and elevated troponin and he was seen by ship fitter, Dr. Baxter and echocardiogram was done, which showed an EF of 50% to 55%. The patient got couple doses of IV Lasix, and his shortness of breath improved. Rejected Items Clerk thought the non-STEMI was most likely due to ischemic demand due to fluid overload. The patient had a repeat CT of the brain on February 12, which showed persistent but improved left frontal parafalcine subarachnoid hemorrhage and right frontal subarachnoid hemorrhage, and other small hemorrhages had resolved. The patient did develop atelectasis and was encouraged to ambulate frequently and uses incentive spirometer. The patient progressively improved. He had lacerations to the back of his left calf that was repaired in the emergency room. The patient progressively improved and was subsequently discharged to [facility] for physical therapy prior to discharge back to his home. Upon evaluation of patient today, he was happy to be alive. He understood he should have sought medical help instead of depending on illicit drugs to help him to ease grieving process. He knows he is depressed and willing to start medication and therapy for this. He has his ex- and his daughter in town now from [place] to help him improve, and he is hoping to move to [place] once out of the hospital. PAST MEDICAL HISTORY: Diabetes, type 2; chronic lower back pain; hypertension; latent syphilis; history of prostate cancer; depression; and Parkinson disease. PAST SURGICAL HISTORY: Prostatectomy, radical robotic laparoscopic with luminal dissection; prostate biopsy; and hemilaminectomy. FAMILY HISTORY: Mother , unknown. Father, Alzheimer disease. Siblings , alive. SOCIAL HISTORY: The patient smokes. He is a former smoker. He uses marijuana and K2 and alcohol use. ALLERGIES: NO KNOWN DRUG ALLERGIES. CODE STATUS: The patient is a DNR. REVIEW OF SYSTEMS: GENERAL: The patient complains of weakness and fatigue. CARDIOVASCULAR: Denies chest pain, shortness of breath, or palpitations. RESPIRATORY: The patient complains of cough. GASTROINTESTINAL: Denies nausea, vomiting, diarrhea, or constipation. GENITOURINARY: Denies dysuria, hematuria, frequency, or urgency. MUSCULOSKELETAL: Complains of chronic back pain. NEUROLOGICAL: Denies any focal deficits. SKIN: Complains of multiple abrasions., PHYSICAL EXAMINATION: VITAL SIGNS: Temperature 98.7, pulse 117, respirations 16, O2 of 92% on 3 L nasal cannula, and blood pressure 118/81. GENERAL: The patient is alert, awake, oriented x3. Sitting up in bed, no apparent distress. HEENT: Normocephalic, atraumatic. Moist oral mucous membranes. Pupils are equal and reactive to light. NECK: Supple. No JVD. CARDIOVASCULAR: S1 and S2. No murmurs. Regular rate and rhythm. LUNGS: Clear to auscultation bilaterally. No wheezing. ABDOMEN: Positive bowel sounds. Soft, nontender, nondistended. EXTREMITIES: No edema or erythema. SKIN: Multiple abrasions to left calf with 2 incision areas with markie in place, with surrounding erythema. MEDICATIONS: 1. Amantadine 100 t.i.d. 2. Norvasc 5 daily. 3. Aspirin 81 daily. 4. Coreg 3.125 b.i.d. 5. Tylenol 650 p.r.n. 6. Lantus 15 units q.a.m. 7. Glucophage 1000 b.i.d. 8. Robaxin 500 daily p.r.n. 9. Azilect. 10. Sulindac 200 mg p.o. b.i.d. 11. Prazosin 2 mg daily. 12. Trazodone 50 mg at bedtime. ASSESSMENT: 1. Physical debility. 2. Acute subdural traumatic bilateral hematoma. 3. Acute posttraumatic respiratory failure. 4. Left calf laceration. 5. Superficial lower extremity abrasions. 6. Diabetes, type 2. 7. Major depression. 8. Grief. PLAN: The patient has been admitted to [facility] for skilled rehabilitation. We will consult Physical Therapy to help with skilled rehabilitation and gait strengthening prior to discharge to his home. We will consult Occupational Therapy to help with activities of daily living. [facility] We will place the patient on Accu-Chek a.c. and at bedtime. We will place him on sliding scale. We will resume his home medications. We will monitor the patient closely for any hemodynamic instability. Oxygen p.r.n. as needed to keep O2 above 92. We will remove markie in 5 days. Code status; the patient is a DNR. This was confirmed with him. Anticipated length of stay; 2 to 3 weeks. Job ID: [id number] MTDD
[2019-02-18] MEDS: Acetaminophen 325 MG TAB PO PRN (05:48)
[2019-02-18] MEDS: Carvedilol 3.125 MG TAB PO SCH ×2 (08:37→16:42)
[2019-02-18] MEDS: Amlodipine 5 MG TAB PO SCH (08:38)
[2019-02-18] MEDS: metFORMIN XR 500 MG TAB PO SCH ×2 (08:38→16:41)
[2019-02-18] MEDS: Aspirin Chewable 81 MG TAB PO SCH (08:38)
[2019-02-18] MEDS: Amantadine HCl 100 mg Capsule PO SCH ×3 (08:38→21:16)
[2019-02-18] MEDS: Famotidine 20 MG TAB PO SCH ×2 (08:38→21:17)
[2019-02-18] MEDS: Prazosin HCl 1 MG CAP PO SCH (08:39)
[2019-02-18] MEDS: Lantus 1000 UNITS/10 ML VIAL SC SCH (08:40)
[2019-02-18] MEDS: Rasagiline Mesylate [Azilect] 1 MG PO SCH (08:41)
[2019-02-18] MEDS: SULINDAC 200 MG PO SCH ×2 (08:41→21:17)
[2019-02-18] MEDS: Insulin Regular 300 UNITS/3 ML VIAL SC PRN ×2 (08:51→12:16)
[2019-02-18 13:08] VITALS: BMI 22.6
--- NOTE | 2019-02-18 14:06 | RAD ---
FRONTAL RADIOGRAPH CHEST: RIGHT RIBS THREE VIEWS: 02/18/2019 HISTORY: Cough with rib tenderness. COMPARISON: Frontal radiograph from 02/16/2019. FINDINGS: The frontal radiograph of the chest demonstrates hazy, nonspecific ground glass opacity/air space dis ease in the bilateral upper lobes, worsened since the 02/16/2019 exam. There is consolidative change involving the medial aspect of both lung bases, worsened as well. Small bilateral pleural effusions are suspected. There is a probably nondisplaced fracture involving the anterior aspect of the right 8th and 9th ribs in the proper clinical setting. Correlation for point tenderness in this region would be beneficial. IMPRESSION: 1. Worsening bilateral air space disease with bibasilar consolidation, suggesting infectious pn eumonitis/aspiration and/or pulmonary edema. 2. Probable right sided rib fractures as above. 3. Short term follow-up imaging of the chest following treatment to document resolution advised. POS: CICI
[2019-02-18] MEDS: Acetaminophen/Codeine 30-300mg Tablet PO PRN ×2 (14:50→21:21)
[2019-02-18] MEDS: traZODone HCl 50 MG TAB PO SCH (21:17)
[2019-02-19] MEDS: Acetaminophen/Codeine 30-300mg Tablet PO PRN ×3 (09:02→23:36)
[2019-02-19] MEDS: Aspirin Chewable 81 MG TAB PO SCH (09:05)
[2019-02-19] MEDS: Famotidine 20 MG TAB PO SCH ×2 (09:05→21:55)
[2019-02-19] MEDS: Amantadine HCl 100 mg Capsule PO SCH ×3 (09:05→21:54)
[2019-02-19] MEDS: metFORMIN XR 500 MG TAB PO SCH ×2 (09:05→17:33)
[2019-02-19] MEDS: Amlodipine 5 MG TAB PO SCH (09:05)
[2019-02-19] MEDS: Carvedilol 3.125 MG TAB PO SCH ×2 (09:05→17:33)
[2019-02-19] MEDS: Prazosin HCl 1 MG CAP PO SCH (09:05)
[2019-02-19] MEDS: Insulin Regular 300 UNITS/3 ML VIAL SC PRN (09:06)
[2019-02-19] MEDS: Lantus 1000 UNITS/10 ML VIAL SC SCH (09:07)
[2019-02-19] MEDS: SULINDAC 200 MG PO SCH (09:14)
[2019-02-19] MEDS: Rasagiline Mesylate [Azilect] 1 MG PO SCH (09:14)
[2019-02-19] MEDS: Sulfameth/Trimethoprim DS 800-160mg TAB PO SCH (21:56)
[2019-02-19] MEDS: traZODone HCl 50 MG TAB PO SCH (21:56)
[2019-02-20] MEDS: Guaifenesin DM 100-10/5 ML UDCUP PO PRN ×2 (05:40→21:00)
[2019-02-20] MEDS: Insulin Regular 300 UNITS/3 ML VIAL SC PRN (08:18)
[2019-02-20] MEDS: Lantus 1000 UNITS/10 ML VIAL SC SCH (08:18)
[2019-02-20] MEDS: Prazosin HCl 1 MG CAP PO SCH (08:21)
[2019-02-20] MEDS: Famotidine 20 MG TAB PO SCH ×2 (08:21→21:00)
[2019-02-20] MEDS: metFORMIN XR 500 MG TAB PO SCH ×2 (08:22→16:45)
[2019-02-20] MEDS: Amlodipine 5 MG TAB PO SCH (08:22)
[2019-02-20] MEDS: Aspirin Chewable 81 MG TAB PO SCH (08:22)
[2019-02-20] MEDS: Sulfameth/Trimethoprim DS 800-160mg TAB PO SCH ×2 (08:23→21:00)
[2019-02-20] MEDS: Carvedilol 3.125 MG TAB PO SCH ×2 (08:23→16:45)
[2019-02-20] MEDS: Rasagiline Mesylate [Azilect] 1 MG PO SCH (08:25)
[2019-02-20] MEDS: Amantadine HCl 100 mg Capsule PO SCH ×3 (08:25→20:58)
[2019-02-20] MEDS ORDERED: Saccharomyces boulardii 250 MG CAP PO SCH (09:00)
[2019-02-20] MEDS: Acetaminophen/Codeine 30-300mg Tablet PO PRN ×2 (12:10→21:01)
[2019-02-20] MEDS: traZODone HCl 50 MG TAB PO SCH (20:58)
[2019-02-20 21:54] VITALS: BP 94/56; TEMP 97.1
--- NOTE | 2019-02-26 08:13 | DIS ---
DATE OF ADMISSION: 02/16/2019 DATE OF DISCHARGE: 02/21/2019 ATTENDING/PRIMARY CARE PHYSICIAN: Lionel Singh MD Mr. Holloway was a 68-year-old male, who was admitted by PCP, Dr. Singh, on 02/16/2019 for skilled rehab at [facility], status post subdural and subarachnoid hematoma, status post traumatic respiratory failure and [id number] [place]. The jingle writer of this summary was client onboarding analyst for weekend coverage for attending, Dr. Singh. The patient had an unremarkable weekend course until I received a call from the staff nurse on 02/21/2019 at 0005 hours. supervisor paste plant, Saeed Sy, notifying me that routine nurse rounds at around 0001 hours of 02/21/2019, the patient was found unresponsive. The patient was assessed by the nursing staff, but unable to obtain vital signs, no heart rate, respiration. Skin was cool to touch. Per nurse's report, the last time the patient was awake at 2235 hours and was talking to the nurse. At that time, he was awake and oriented. Oxygen was reapplied with no complains at that time. ER physician was called to pronounce , the time called by Dr. Fatima at 0008 hours. supervisor paste plant notified the family. supervisor paste plant spoke to Giulia Holloway at 0021 hours via phone, requesting for an autopsy. Based on the patient's history and hospital course, it was not deemed that autopsy was clinically indicated. Because of family's request, Judge Maria was consulted. supervisor paste plant spoke to Judge Maria, who did not feel that an autopsy was warranted. Family was notified by the staff and was offered that autopsy could still be performed per family's request, but they would be responsible for the cost. Family then declined autopsy per supervisor paste plant's report. The patient's body was released per family's request to the family's mortuary. Attending physician/PCP, Dr. Singh, was notified of the patient's expiration. Refer to certificate of attending/PCP, Dr. Singh, for further details. Job ID: [id number] MTDD
== END 2019-02-21 03:18 | disposition expired | DRG 82 ==
LOC: MADMS 17:34
PROVIDERS: ADMIT Family Medicine; ATTEND Family Medicine
DX: S06.5X9A Traumatic subdural hemorrhage with loss of consciousness of unspecified duration, initial encounter (principal); J96.00 Acute respiratory failure, unspecified whether with hypoxia or hypercapnia; I21.A1 Myocardial infarction type 2; I10 Essential (primary) hypertension; E11.9 Type 2 diabetes mellitus without complications; F43.10 Post-traumatic stress disorder, unspecified; M54.5 Low back pain; G89.29 Other chronic pain; G20 Parkinson's disease; F02.80 Dementia in other diseases classified elsewhere, unspecified severity, without behavioral disturbance, psychotic disturbance, mood disturbance, and anxiety; R40.2431 Glasgow coma scale score 3-8, in the field [EMT or ambulance]; F32.9 Major depressive disorder, single episode, unspecified; Z85.46 Personal history of malignant neoplasm of prostate; Z98.890 Other specified postprocedural states; Z87.891 Personal history of nicotine dependence; Z66 Do not resuscitate; Z79.82 Long term (current) use of aspirin; Z79.899 Other long term (current) drug therapy; R53.81 Other malaise; S81.812D Laceration without foreign body, left lower leg, subsequent encounter; F43.21 Adjustment disorder with depressed mood; R25.1 Tremor, unspecified
CPT/HCPCS: 36416; J1815; J7620